=== PATIENT | female | born 1990 | race Caucasian/White ===

== ENCOUNTER 2017-03-09 09:26 | Inpatient (IN) ==
[2017-03-09] MEDS ORDERED: PEPCID PO PRN (20:22)
[2017-03-09] MEDS ORDERED: ZOFRAN IV PRN (20:22)
[2017-03-09] MEDS ORDERED: REGLAN PO ONE (20:22)
[2017-03-09] MEDS ORDERED: TYLENOL PO PRN (20:22)
[2017-03-09] MEDS ORDERED: KEFZOL 1 GM/D5W 1 GM/50 ML IVPB IV PRN (20:22)
[2017-03-09] MEDS ORDERED: STADOL IV PRN ×3 (20:22)
[2017-03-09] MEDS ORDERED: PEPCID IV PRN (20:22)
[2017-03-09] MEDS ORDERED: PEPCID PO ONE (20:22)
[2017-03-09] MEDS ORDERED: BRETHINE SUBQ PRN (20:22)
[2017-03-09] MEDS: LR 1,000 ML IV ONE (21:50)
[2017-03-09] MEDS ORDERED: CYTOTEC PO ONE (22:00)
[2017-03-09] MEDS: AMBIEN PO PRN (23:13)
[2017-03-10 00:10] LABS: MANUAL DIFF NEEDED? NO
[2017-03-10 00:43] LABS: BASO% 0.1 % (0.0-0.8); EOS# 0.06 X1000 (0.0-0.7); EOS% 0.6 % (0.0-10.0); HEMATOCRIT 34.5 % (37.0-47.0); HEMOGLOBIN 12.1 g/dL (12.0-16.0); IMM GRAN# 0.02 X1000 (0.0-0.04); IMM GRAN% 0.2 % (0.0-0.5); LYMPH# 2.62 X1000 (1.2-3.4); LYMPH% 26.5 % (20.5-51.1); MCH 31.2 PG (27-31); MCHC 35.1 g/dL (33-37); MCV 88.9 FL (81-99); MONO# 0.81 X1000 (0.11-0.59); MONO% 8.2 % (1.7-9.3); NEUT% 64.4 % (42.2-75.2); PLT 176 X1000 (130-400); RBC 3.88 XMIL (4.2-5.4)
[2017-03-10 00:45] LABS: UR AMPHETAMINES QUAL NONE DETECTED (NONE DETECT); UR BARBITUATES QUAL NONE DETECTED (NONE DETECT); UR BENZODIAZEPIN QUAL NONE DETECTED (NONE DETECT); UR CANNABINOIDS QUAL NONE DETECTED (NONE DETECT); UR COCAINE QUAL NONE DETECTED (NONE DETECT); UR MDMA QUAL NONE DETECTED (NONE DETECT); UR METHADONE QUAL NONE DETECTED (NONE DETECT); UR METHAMPHETAMINE QUAL NONE DETECTED (NONE DETECT); UR OPIATES QUAL NONE DETECTED (NONE DETECT); UR OXYCODONE QUAL NONE DETECTED (NONE DETECT); UR PCP QUAL NONE DETECTED (NONE DETECT); UR TCA QUAL NONE DETECTED (NONE DETECT)
[2017-03-10 02:19] LABS: URINE SOURCE VOIDED
[2017-03-10 02:28] LABS: BILIRUBIN URINE NEGATIVE (NEGATIVE); BLOOD URINE TRACE (NEGATIVE); CLARITY CLEAR (CLEAR); COLOR YELLOW; GLUCOSE URINE NEGATIVE (NEGATIVE); LEUKOCYTES URINE 2+ (NEGATIVE); NITRITE URINE NEGATIVE (NEGATIVE); PROTEIN URINE TRACE mg/dL (NEGATIVE); SP GRAVITY URINE 1.025; UROBILINOGEN URINE NORMAL
[2017-03-10] MEDS: CYTOTEC PO SCH ×2 (03:13→06:06)
[2017-03-10] MEDS: PITOCIN 30 UNITS/LR 30 UNITS/500 ML IV.SOLN IV SCH (07:15)
[2017-03-10] MEDS ORDERED: FENTANYL-BUPIV-NS 2 MCG-0.1% 200 ML EPIDURAL PRN (08:23)
[2017-03-10] MEDS ORDERED: PITOCIN 30 UNITS/LR 30 UNITS/500 ML IV.SOLN IV SCH (10:00)
[2017-03-10] MEDS ORDERED: BENADRYL PO PRN (21:47)
[2017-03-11] MEDS: AMBIEN PO PRN (02:24)
[2017-03-11] MEDS ORDERED: CYTOTEC PO ONE ×2 (04:00)
[2017-03-11] MEDS: LR 1,000 ML IV ONE ×2 (07:24→12:39)
[2017-03-11] MEDS: PITOCIN 30 UNITS/LR 30 UNITS/500 ML IV.SOLN IV SCH (07:25)
[2017-03-11] MEDS ORDERED: LR 1,000 ML ONE ×2 (12:35→16:12)
[2017-03-11] MEDS ORDERED: PEPCID IV ONE (15:30)
[2017-03-11] MEDS ORDERED: SODIUM CHLORIDE 0.9% INJ ONE (15:30)
[2017-03-11] MEDS ORDERED: BICITRA PO ONE (15:30)
[2017-03-11] MEDS ORDERED: PITOCIN ONE ×2 (15:38→16:31)
[2017-03-11] MEDS ORDERED: ZOFRAN ONE ×2 (15:38→16:33)
--- NOTE | 2017-03-11 15:44 | HISTORY AND PHYSICAL ---
PHYSICIAN: Dr. Lobo Sykes. ADMITTING DIAGNOSES: 1. Term . 2. Suspected macrosomia. 3. Failed induction of labor. SUMMARY: Jessica Sadler is a 26-year-old primigravida who is at term gestation. She has had care at our office. Her blood type is B positive. Rubella immune. Hepatitis B surface antigen, HIV, and group B strep is negative. Her last ultrasound was performed on February 18 which gave an estimated weight of 3254 g, this is 73 percentile growth. Due to concerns of macrosomia she was brought in to the hospital at [address] Arriaga. She received Cytotec and Pitocin. She failed to make any progress. She was rested overnight and the Cytotec and Pitocin. Once again was started. There has been no cervical change. After discussing options with the patient, she is being prepared for delivery for failed induction of labor and possible macrosomia. PAST MEDICAL HISTORY: Patient has a history of mitral valve prolapse. Otherwise, there are no chronic medical or surgical illnesses. CURRENT MEDICATIONS: vitamins. ALLERGIES: To Bactrim. PHYSICAL EXAMINATION: GENERAL: Shows a well-developed, well-nourished female. VITAL SIGNS: Stable. She is afebrile. CARDIOVASCULAR: Regular rate and rhythm. No murmurs, rubs, gallops. PULMONARY: Clear. BREASTS: No masses. ABDOMEN: Gravid. Cervix is fingertip and the infant is -1 station. EXTREMITIES: Trace edema. IMPRESSION: 1. 39 week . 2. Failed induction of labor. 3. Possible macrosomia. PLAN: For these indications, will proceed with delivery. Risks, benefits, possible complications, obstetrical indications have been discussed in detail. cc: MD Lobo Schwartz MD
[2017-03-11] MEDS ORDERED: DURAMORPH ONE (15:49)
[2017-03-11] MEDS ORDERED: ROBINUL ONE (16:48)
[2017-03-11] MEDS ORDERED: DEMEROL IM PRN (17:16)
[2017-03-11] MEDS ORDERED: PITOCIN 20 UNITS/LR 20 UNITS/1,000 ML IV.SOLN IV ONE (17:16)
[2017-03-11] MEDS ORDERED: PERCOCET-5 PO PRN (17:16)
[2017-03-11] MEDS ORDERED: AMBIEN PO PRN (17:16)
[2017-03-11] MEDS ORDERED: M-M-R II VACCINE SUBQ ONE (17:16)
[2017-03-11] MEDS ORDERED: BOOSTRIX VACCINE IM ONE (17:16)
[2017-03-11] MEDS ORDERED: HYDROXYZINE IM PRN (17:16)
[2017-03-11] MEDS ORDERED: NORCO-5 PO PRN (17:16)
[2017-03-11] MEDS ORDERED: DULCOLAX PR PRN (17:16)
[2017-03-11] MEDS ORDERED: PHENERGAN IM PRN (17:16)
[2017-03-11] MEDS ORDERED: PITOCIN 10 UNITS/LR 10 UNIT/1,000 ML IV.SOLN IV SCH (17:16)
[2017-03-11] MEDS ORDERED: NORCO-10 PO PRN (17:16)
[2017-03-11] MEDS ORDERED: DEMEROL PO PRN ×2 (17:16)
[2017-03-11] MEDS ORDERED: PITOCIN IM PRN (17:16)
[2017-03-11] MEDS ORDERED: CYTOTEC PO PRN (17:16)
[2017-03-11] MEDS ORDERED: LR 1,000 ML IV SCH (17:36)
[2017-03-11] MEDS ORDERED: MORPHINE PCA IV PRN (17:36)
[2017-03-11] MEDS ORDERED: NARCAN IV PRN (17:36)
[2017-03-11] MEDS ORDERED: ZOFRAN ODT PO PRN (17:37)
[2017-03-11] MEDS ORDERED: ZOFRAN IV PRN ×2 (17:37)
[2017-03-11] MEDS ORDERED: NARCAN INJ PRN (17:37)
[2017-03-11] MEDS: TORADOL IV SCH ×2 (18:19→23:18)
[2017-03-11] MEDS: MYLICON PO SCH ×2 (18:26→22:26)
--- NOTE | 2017-03-11 18:44 | OPERATIVE NOTE ---
PROCEDURE DATE: 03/11/2017 SURGEON: Lobo Sykes MD. ANESTHESIA: Spinal. OPERATION PERFORMED: Primary low transverse section. PREOPERATIVE DIAGNOSIS: 1. Term . 2. Suspected macrosomia. 3. Failure to progress in labor. POSTOPERATIVE DIAGNOSIS: Cephalopelvic disproportion. FINDINGS: At 16:27, a 7 pound 14 ounce female was delivered in a vertex presentation. Apgars were 8 at 1 minute and 9 at 5 minutes. SUMMARY: Patient was taken back to the operating room where spinal anesthetic was placed and placed in supine position with left lateral tilt. The abdomen is prepped and draped in usual fashion. A Mann catheter was in the urinary bladder. Once satisfactory conduction anesthesia was demonstrated, a Pfannenstiel incision was made. This incision was taken down to the fascia. The fascia was excised transversely. The underlying rectus muscles were bluntly and sharply dissected free. The rectus muscle were in midline. The peritoneum was entered. Lower uterine segment was identified. A bladder flap was created. A low transverse incision was made across the myometrium. This incision was extended laterally using digital pressure. Membranes were ruptured, revealing a small amount of clear fluid. The 's vertex was delivered through this incision. There was no Capoten molding. The shoulders and body delivered without complications. Cord was clamped and cut, as the oropharynx was bulb suctioned. was handed to the nurses for further care and evaluation. Cord blood was obtained. Placenta was manually removed. The uterus delivered onto the abdominal wall and explored. All membrane fragments removed. The myometrium was reapproximated using a running #1 chromic interlocking suture, followed by several [id number] chromic sutures for complete hemostasis across the suture line. The uterus was placed back in pelvic cavity. Uterine incision reexamined and found to be hemostatic. The pelvic cavity was irrigated with copious amounts of sterile water. We reexamined incision, again showed hemostasis. Initial and 2nd sponge, instrument and needle count reported was correct as the peritoneum was closed using a running chromic suture. A 3rd sponge, instrument and needle count reported as correct. The fascia was closed using running Vicryl sutures x2. Adipose tissues were reapproximated using running 3-0 Vicryl suture. Skin edges reapproximated using a 4-0 Biosyn suture. Blood loss estimated by Anesthesia at 500 mL. There no complications. The patient went to recovery room in stable condition. cc: MD Lobo Schwartz MD
[2017-03-11] MEDS: BENADRYL IV PRN (19:31)
[2017-03-11] MEDS: PERICOLACE PO SCH (22:26)
[2017-03-12] MEDS: BENADRYL IV PRN (03:27)
[2017-03-12] MEDS: TORADOL IV SCH ×2 (04:34→10:53)
[2017-03-12 05:44] LABS: HEMATOCRIT 27.8 % (37.0-47.0); HEMOGLOBIN 9.5 g/dL (12.0-16.0); MCH 30.7 PG (27-31); MCHC 34.2 g/dL (33-37); MPV 12.9 FL (7.4-10.4); RBC 3.09 XMIL (4.2-5.4)
[2017-03-12] MEDS: PRECARE PO SCH (08:32)
[2017-03-12] MEDS: MYLICON PO SCH ×7 (08:32→20:04)
[2017-03-12] MEDS: HYDROXYZINE PO PRN ×2 (10:53→14:25)
[2017-03-12] MEDS: MYLICON PO PRN ×2 (14:20→22:47)
[2017-03-12] MEDS: PERCOCET-10 PO PRN ×3 (14:21→22:37)
[2017-03-12] MEDS ORDERED: LR 1,000 ML IV SCH (17:01)
[2017-03-12] MEDS: PERICOLACE PO SCH (20:04)
[2017-03-12] MEDS: MOTRIN PO PRN (22:36)
[2017-03-13] MEDS: PERCOCET-10 PO PRN ×3 (04:58→17:22)
[2017-03-13] MEDS: MYLICON PO PRN (04:58)
[2017-03-13] MEDS: PRECARE PO SCH (10:13)
[2017-03-13] MEDS: MOTRIN PO PRN ×2 (10:13→17:22)
[2017-03-13] MEDS: MYLICON PO SCH ×4 (10:14→20:17)
--- NOTE | 2017-03-13 10:39 | PROGRESS NOTE ---
DATE: 03/13/2017 SUBJECTIVE: She is postop day 2 from a primary low transverse section for failure to progress. She complains of some abdominal pain and decreased appetite. Otherwise okay. OBJECTIVE: Vital signs: Her vital signs are stable. She is afebrile. General: She is alert. She is cooperative. Abdomen: Slightly distended. Incision is dry and intact with no erythema. LABORATORY DATA: No new laboratory values. Her hemoglobin yesterday was 9.5. PLAN: Will continue routine and postop care. Anticipate discharge either this afternoon or in the morning. cc: Lobo Arriaga MD
[2017-03-13] MEDS: PERICOLACE PO SCH (20:17)
[2017-03-14 08:11] VITALS: BP 137/73
[2017-03-14] MEDS: PRECARE PO SCH (08:11)
[2017-03-14] MEDS: MYLICON PO SCH ×2 (08:12→13:59)
[2017-03-14] MEDS: PERCOCET-10 PO PRN (08:12)
[2017-03-14] MEDS: MOTRIN PO PRN (10:58)
--- NOTE | 2017-03-14 14:43 | DISCHARGE SUMMARY ---
ADMISSION DATE: 03/09/2017 DISCHARGE DATE: 03/14/2017 ADMITTING DIAGNOSIS: Term for induction. DISCHARGE DIAGNOSIS: Failed induction. PROCEDURES: Low transverse delivery. CONDITION: Stable. DIET: As tolerated. ACTIVITY: Routine and postop instructions. MEDICATIONS: She is to continue her vitamins with iron. She is also to take over the counter nonsteroidals for cramping and a prescription for [place] 10 has been given. FOLLOWUP: She is to follow up in 1-2 weeks at the office. HOSPITAL COURSE: Please refer to Ms. Sadler's records, H and P and operative note. She was admitted Thursday evening for induction. After 2 day induction she had not progressed so she underwent delivery. She has done well and currently she is postop day 3 desiring discharge. PHYSICAL EXAM: Vital Signs: Stable. She is afebrile. General: She is alert and cooperative, no distress. Neck: Supple. Lungs: Clear. Heart: Regular sinus rhythm. Abdomen: Slightly distended. Incision is dry and intact. Extremities: +2 lower extremity edema. She has stable hemoglobin. Will discharge with above instructions. cc: Lobo Arriaga MD
== END 2017-03-14 15:00 | disposition home or self-care (01) ==
LOC: P.LD 20:18 → P.WC 03-11 22:27
PROVIDERS: ADMIT Obstetrics & Gynecology; ATTEND Obstetrics & Gynecology